=== PATIENT | male | born 1965 | race Caucasian/White ===

== ENCOUNTER 2016-12-21 22:31 | Emergency (ER) | payer MEDICARE, OTHER ==
[~2016-12-21 22:31] MED LIST: ABILIFY10 MG PO; BENZTROPINE MESY1 MG PO; CATAPRES0.2 MG PO; COREG25 MG PO; DOCUSATE CALCI240 MG PO; FLOMAX 0.4 MG0.4 MG PO; LOFIBRA160 MG PO; MAGIC MOUTHWASH PO; MIRALAX17 GM PO; NORVASC5 MG PO; PROZAC40 MG PO; SYNTHROID25 MCG PO; TRAZODONE HCL150 MG PO; ZANTAC300 MG PO; ZESTRIL40 MG PO; ZOFRAN4 MG PO
== END 2016-12-21 23:15 | disposition home or self-care (01) ==
LOC: ER1 22:31
DX: M79.672 Pain in left foot (principal); M79.671 Pain in right foot; G89.29 Other chronic pain; F17.200 Nicotine dependence, unspecified, uncomplicated; F41.9 Anxiety disorder, unspecified; Z79.899 Other long term (current) drug therapy
CPT/HCPCS: 99283

== ENCOUNTER 2016-12-29 22:28 | Emergency (ER) | payer MEDICARE, OTHER ==
[2016-12-30 02:14] LABS: HEMOGLOBIN 11.7 gm/dl (14.0-17.5); RED BLOOD COUNT 4.1 M/UL (4.20-5.50); WHITE BLOOD COUNT 6.1 K/UL (4.5-11.0)
[2016-12-30 02:32] LABS: BUN/CREATININE RATIO 10 (0-10)
== END 2016-12-30 05:50 | disposition home or self-care (01) ==
LOC: ER1 22:28
PROVIDERS: Family Medicine
DX: F41.1 Generalized anxiety disorder (principal); I10 Essential (primary) hypertension; Z79.899 Other long term (current) drug therapy
CPT/HCPCS: 80053; 80307; 81001; 84443; 85025; 99284

== ENCOUNTER 2017-01-04 19:09 | Emergency (ER) | payer MEDICARE, OTHER | END 2017-01-04 20:40 | disposition home or self-care (01) | LOC: ER1 19:09 | DX: K08.89 Other specified disorders of teeth and supporting structures (principal); I10 Essential (primary) hypertension; E03.9 Hypothyroidism, unspecified; F17.290 Nicotine dependence, other tobacco product, uncomplicated | CPT/HCPCS: 96372; 99282; J1885 ==

== ENCOUNTER 2017-01-09 11:39 | Emergency (ER) | payer MEDICARE, OTHER ==
[2017-01-09 12:36] LABS: HEMOGLOBIN 12.6 gm/dl (14.0-17.5); RED BLOOD COUNT 4.42 M/UL (4.20-5.50)
[2017-01-09 12:52] LABS: BUN/CREATININE RATIO 19 (0-10)
== END 2017-01-09 13:22 | disposition home or self-care (01) ==
LOC: ER1 11:39
PROVIDERS: Physician Assistant Medical
DX: G47.00 Insomnia, unspecified (principal); R53.83 Other fatigue; F32.9 Major depressive disorder, single episode, unspecified; F41.9 Anxiety disorder, unspecified; E03.9 Hypothyroidism, unspecified; I51.9 Heart disease, unspecified; I10 Essential (primary) hypertension; F17.290 Nicotine dependence, other tobacco product, uncomplicated; Z79.899 Other long term (current) drug therapy
CPT/HCPCS: 36415; 80053; 80307; 81001; 84443; 85025; 99283

== ENCOUNTER 2017-01-14 21:38 | Emergency (ER) | payer MEDICARE, OTHER ==
[2017-01-15 01:27] LABS: RED BLOOD COUNT 4.23 M/UL (4.20-5.50); WHITE BLOOD COUNT 6.4 K/UL (4.5-11.0)
[2017-01-15 01:53] LABS: BUN/CREATININE RATIO 13 (0-10)
== END 2017-01-15 04:15 | disposition home or self-care (01) ==
LOC: ER1 21:38
PROVIDERS: Physician Assistant
DX: F41.9 Anxiety disorder, unspecified (principal); F20.9 Schizophrenia, unspecified; I10 Essential (primary) hypertension; F17.220 Nicotine dependence, chewing tobacco, uncomplicated; Z79.899 Other long term (current) drug therapy
CPT/HCPCS: 36415; 80053; 80307; 81001; 84484; 85025; 87086; 99283; G0480

== ENCOUNTER 2017-01-17 21:54 | Emergency (ER) | payer MEDICARE, OTHER | END 2017-01-17 22:02 | disposition left against medical advice (07) | LOC: ER1 21:54 | DX: Z53.21 Procedure and treatment not carried out due to patient leaving prior to being seen by health care provider (principal) ==

== ENCOUNTER 2017-01-23 20:39 | Emergency (ER) | payer MEDICARE, OTHER | END 2017-01-23 21:51 | disposition home or self-care (01) | LOC: ER1 20:39 | DX: S16.1XXA Strain of muscle, fascia and tendon at neck level, initial encounter (principal); I10 Essential (primary) hypertension; F17.228 Nicotine dependence, chewing tobacco, with other nicotine-induced disorders; X58.XXXA Exposure to other specified factors, initial encounter | CPT/HCPCS: 99283 ==

== ENCOUNTER 2017-01-31 01:20 | Emergency (ER) | payer MEDICARE, OTHER | END 2017-01-31 05:00 | disposition home or self-care (01) | LOC: ER1 01:20 | DX: J30.2 Other seasonal allergic rhinitis (principal); I10 Essential (primary) hypertension; F41.9 Anxiety disorder, unspecified; F17.210 Nicotine dependence, cigarettes, uncomplicated; Z79.899 Other long term (current) drug therapy | CPT/HCPCS: 99283 ==

== ENCOUNTER 2017-02-23 22:46 | Emergency (ER) | payer MEDICARE, OTHER | END 2017-02-24 03:40 | disposition home or self-care (01) | LOC: ER1 22:46 | DX: M54.2 Cervicalgia (principal); M54.9 Dorsalgia, unspecified; G89.29 Other chronic pain | CPT/HCPCS: 99283 ==

== ENCOUNTER 2017-03-02 11:51 | Emergency (ER) | payer MEDICARE, OTHER | END 2017-03-02 13:00 | disposition home or self-care (01) | LOC: ER1 11:51 | DX: S80.812A Abrasion, left lower leg, initial encounter (principal); I10 Essential (primary) hypertension; I25.10 Atherosclerotic heart disease of native coronary artery without angina pectoris; F17.210 Nicotine dependence, cigarettes, uncomplicated; X58.XXXA Exposure to other specified factors, initial encounter; Y93.02 Activity, running; Y92.828 Other wilderness area as the place of occurrence of the external cause | CPT/HCPCS: 99283 ==

== ENCOUNTER 2017-03-28 21:43 | Emergency (ER) | payer MEDICARE, OTHER | END 2017-03-29 02:11 | disposition home or self-care (01) | LOC: ER1 21:43 | DX: G47.00 Insomnia, unspecified (principal) | CPT/HCPCS: 93005; 99283 ==

== ENCOUNTER 2017-04-05 21:20 | Emergency (ER) | payer MEDICARE, OTHER | END 2017-04-06 00:40 | disposition left against medical advice (07) | LOC: ER1 21:20 | DX: Z53.21 Procedure and treatment not carried out due to patient leaving prior to being seen by health care provider (principal) ==

== ENCOUNTER 2017-04-08 01:12 | Emergency (ER) | payer MEDICARE, OTHER | END 2017-04-08 03:05 | disposition home or self-care (01) | LOC: ER1 01:12 | DX: G47.00 Insomnia, unspecified (principal); F41.9 Anxiety disorder, unspecified; F32.9 Major depressive disorder, single episode, unspecified; F22 Delusional disorders; Z79.82 Long term (current) use of aspirin; Z79.899 Other long term (current) drug therapy | CPT/HCPCS: 99283 ==